=== PATIENT | female | born 1995 | race African-American/Black ===

== ENCOUNTER 2020-02-01 11:29 | Outpatient (REF) | payer OTHER, SELFPAY | END 2020-02-01 11:30 | disposition home or self-care (01) | LOC: HO.HMGCLDS 11:29 | PROVIDERS: PCP Internal Medicine; Visit Provider Internal Medicine | DX: Z01.84 Encounter for antibody response examination (principal); R76.11 Nonspecific reaction to tuberculin skin test without active tuberculosis | CPT/HCPCS: 86481 ==

== ENCOUNTER 2020-02-09 08:52 | Outpatient (REF) | payer OTHER, SELFPAY ==
[2020-02-11 18:32] LABS: TS Negative Control Passed; TS Panel A 0; TS Panel B 0; TS Positive Control Passed; TSpotTB Negative (SeeBelow)
== END 2020-02-09 08:53 | disposition home or self-care (01) ==
LOC: HO.HMGCLDS 08:52
PROVIDERS: PCP Internal Medicine; Visit Provider Internal Medicine
DX: Z01.84 Encounter for antibody response examination (principal); Z11.1 Encounter for screening for respiratory tuberculosis
CPT/HCPCS: 86481

== ENCOUNTER 2021-10-20 09:34 | Outpatient (REF) | payer OTHER, SELFPAY ==
--- NOTE | ~2021-10-20 | XR_ITS ---
EXAMINATION: XR CHEST CLINICAL INFORMATION: Chest pain, unspecified. COMPARISON: None TECHNIQUE: 2 views of the chest were obtained. FINDINGS: No significant abnormality is noted involving the heart, lungs, mediastinum, bony thorax or soft tissues. XR/XR chest 2V IMPRESSION: No acute cardiopulmonary process.
[2021-10-20 11:19] LABS: MANUAL DIFF FLAG NO
[2021-10-20 11:33] LABS: Basophils Percent Auto 0.4 % (0-2); Eosinophils Absolute Auto 0.1 X10*3/uL (0.0-0.4); Eosinophils Percent Auto 1.7 % (0-4); Hematocrit 40.1 % (37.0-47.0); Hemoglobin 13.1 g/dl (12.0-16.0); Imm Gran Abs Auto 0.01 X10*3/uL (0.00-0.03); Imm Gran Pct Auto 0.1 % (0.0-0.4); Lymphocytes Absolute Auto 2.1 X10*3/uL (1.2-4.9); Lymphocytes Percent Auto 28.2 % (20-40); Mean Corpuscular HGB Conc 32.7 g/dl (31.0-35.0); Mean Corpuscular Hemoglobin 29.6 pg (27.0-33.0); Mean Corpuscular Volume 90.7 fL (80.0-98.0); Mean Platelet Volume 10.6 fL (9.4-12.3); Monocytes Absolute Auto 0.6 X10*3/uL (0.1-1.2); Monocytes Percent Auto 8.4 % (2-11); Neutrophils Absolute Auto 4.6 x10*3/uL (2.0-8.3); Neutrophils Percent Auto 61.2 % (45-73); Platelet Count 257 X10*3/uL (160-400); Red Blood Count 4.42 X10*6/uL (4.20-5.50); Red Cell Distribution Width 12.6 % (11.0-16.0); White Blood Count 7.5 X10*3/uL (4.8-10.8)
[2021-10-20 11:36] LABS: D Dimer High Sensitivity < 150 NG/ML
== END 2021-10-20 09:35 | disposition home or self-care (01) ==
LOC: HO.HMGCX 09:34
PROVIDERS: PCP Internal Medicine; Visit Provider Nurse Practitioner Family
DX: R07.9 Chest pain, unspecified (principal); U09.9 Post COVID-19 condition, unspecified
CPT/HCPCS: 36415; 71046; 85025; 85379

== ENCOUNTER 2022-04-15 11:19 | Outpatient (REF) | payer OTHER, SELFPAY ==
[2022-04-15 14:05] LABS: MANUAL DIFF FLAG NO
[2022-04-15 14:15] LABS: Basophils Percent Auto 0.5 % (0-2); Eosinophils Absolute Auto 0.1 X10*3/uL (0.0-0.4); Eosinophils Percent Auto 1.4 % (0-4); Hematocrit 42.3 % (37.0-47.0); Hemoglobin 13.3 g/dl (12.0-16.0); Imm Gran Abs Auto 0.02 X10*3/uL (0.00-0.03); Imm Gran Pct Auto 0.3 % (0.0-0.4); Lymphocytes Absolute Auto 1.9 X10*3/uL (1.2-4.9); Lymphocytes Percent Auto 30.6 % (20-40); Mean Corpuscular HGB Conc 31.4 g/dl (31.0-35.0); Mean Corpuscular Hemoglobin 29.3 pg (27.0-33.0); Mean Corpuscular Volume 93.2 fL (80.0-98.0); Mean Platelet Volume 10.6 fL (9.4-12.3); Monocytes Absolute Auto 0.6 X10*3/uL (0.1-1.2); Neutrophils Absolute Auto 3.6 x10*3/uL (2.0-8.3); Neutrophils Percent Auto 57.2 % (45-73); Platelet Count 269 X10*3/uL (160-400); Red Blood Count 4.54 X10*6/uL (4.20-5.50); Red Cell Distribution Width 13.1 % (11.0-16.0); White Blood Count 6.3 X10*3/uL (4.8-10.8)
[2022-04-15 14:47] LABS: Alanine Aminotransferase 14 U/L (0-31); Aspartate Amino Transferase 16 U/L (5-31); Cholesterol 179 mg/dL; Glucose Fasting 62 mg/dL (60-99); HDL Cholesterol 75 mg/dL; LDL Cholesterol Calculated 93 mg/dl; Triglycerides 57 mg/dL
[2022-04-15 14:51] LABS: TSH reflex Free T4 0.91 uIU/mL (0.32-4.0); Vitamin D 25-OH Total 17.6 ng/mL (>30)
== END 2022-04-15 11:20 | disposition home or self-care (01) ==
LOC: HO.HMGCLDS 11:19
PROVIDERS: Visit Provider Internal Medicine
DX: Z00.01 Encounter for general adult medical examination with abnormal findings (principal); F98.8 Other specified behavioral and emotional disorders with onset usually occurring in childhood and adolescence; R41.840 Attention and concentration deficit; R53.83 Other fatigue
CPT/HCPCS: 36415; 80061; 82306; 82947; 84443; 84450; 84460; 85025

== ENCOUNTER 2024-06-15 14:04 | Outpatient (AMB) | payer OTHER, SELFPAY ==
[2024-06-15 14:20] VITALS: BP 114/70; PULSE 80; RESP 16; TEMP 36.6; O2SAT 98; BMI 23.0
--- NOTE | 2024-06-15 14:20 | MHC.PC.OV ---
Vital Signs 06/15/24 14:20 Height 5 ft 3 in Weight 130 lb BMI 23.0 BP 114/70 Blood Pressure Location Lt brachial Position Sitting Respiration 16 Pulse 80 Pulse Source Pulse Oximeter Temp 97.8 F Temp Source Oral Pulse Oximetry (%) 98 Oxygen Delivery Method Room Air Intake Visit Reasons: PE Intake Note: Pt is here today for her PE Is last menstrual period known: Yes Last menstrual period: 06/13/24 Allergies Seasonal Allergies Allergy (Verified 06/15/24 14:45) Sneezing Medication List - Last Reconciled 06/15/24 by Bonnie Alaniz MD ferrous sulfate, dried ER (Slow Release Iron) 160 mg PO DAILY methylphenidate HCl 10 mg PO BID propranolol 10 mg PO ONCE PRN Tobacco use date assessed: 06/15/24 Dental Screening Dental Screen Date: 06/15/24 Did you have a dental visit in the last 12 months?: No Did you have a dental problem in the last 6 months where you did not have access to dental care?: No Was dental information given to patient?: Patient has dentist HPI PE HPI Details 29-year-old lady with history of iron-deficiency anemia, vitamin-D deficiency, here today for her physical exam. She is currently taking methylphenidate, for her ADD, prescribed by Knu Castaneda. . [facility] Medical History (Updated 06/15/24 @ 14:53 by Bonnie Alaniz MD) History of blood transfusion Vitamin D deficiency Hx of iron deficiency anemia Skin lesion of back ADD (attention deficit disorder) Melanocytic nevus Traction alopecia Recurrent candidiasis of vagina Surgical History [place] teeth extracted History of tonsillectomy Family History (Updated 06/18/24 @ 15:35 by Bonnie Alaniz MD) Father Abnormal fasting glucose Maternal Grandfather Colon cancer Maternal Grandfather Colon cancer Maternal Grandmother Colon cancer Sister Breast cancer, Onset Age: 31 Mother Cancer of kidney Cervical cancer Social History Housing: Apartment Alcohol intake: current Alcohol intake frequency: a few times a month Alcohol type: beer, wine and hard liquor Patient Tobacco Use Status: Never used Tobacco e-Cigarette/Vaping Use: Never Used service: No Current occupational status: employed and student Cognitive needs: No Hearing needs: No Vision needs: No Female Reproductive History Menstrual Date of last menstrual period: 06/13/24 Questionnaire PHQ-9 Over the last 2 weeks, how often have you been bothered by any of the following problems? 1. Little interest or pleasure in doing things: not at all 2. Feeling down, depressed, or hopeless: not at all 3. Trouble falling or staying asleep, or sleeping too much: several days 4. Feeling tired or having little energy: not at all 5. Poor appetite or overeating: not at all 6. Feeling bad about yourself - or that you are a failure or have let yourself or your family down: not at all 7. Trouble concentrating on things, such as reading the newspaper or watching television: not at all 8. Moving or speaking so slowly that other people could have noticed. Or the opposite - being so fidgety or restless that you have been moving around a lot more than usual: not at all 9. Thoughts that you would be better off or of hurting yourself in some way: not at all Total score: 1 Depression Screening Interpretation: Negative Depression Screening Done: Yes 55676 - PHQ-9 Billing: Yes Source: Developed by Drs. Theo Nelson, Mihaela Victoria, Wero Bhatt and colleagues, with an educational antoni from [employer]. Thrive Questionnaire Date Thrive assessed: 06/15/24 I am a: Patient What is your living situation today?: I have a steady place to live Within the past 12 months, did the food you bought not last and you didn't have the money to get more?: Never true Within the past 12 months, did you worry whether your food would run out before you got money to buy more?: Never true Do you have trouble paying for medicines?: No Do you have trouble getting transportation to medical appointments?: No Do you have trouble paying your heating and electricity bill?: No Do you have trouble taking care of your child, family member or friend?: No Do you have trouble with day-to-day activities such as bathing, preparing meals, shopping, managing finances, etc.?: No Are you currently unemployed and looking for a job?: No Are you interested in more education?: No Please select the resources that you would like help with: None THRIVE Score: 0 AUDIT C Alcohol Use Questionnaire (AUDIT-C) 1. How often do you have a drink containing alcohol?: Monthly or less 2. How many drinks containing alcohol do you have on a typical day when you are drinking?: 1 or 2 3. How often do you have six or more drinks on one occasion?: Never Total Score: 1 CRYS-7 AMB Questionnaire CRYS-7 Date CRYS - 7 assessed: 06/15/24 Feeling nervous, anxious, or on edge: 0 = Not at all Not being able to stop or control worryin = Not at all Worrying too much about different things: 1 = Several days Trouble relaxin = Not at all Being so restless that it is hard to sit still: 0 = Not at all Becoming easily annoyed or irritable: 0 = Not at all Feeling afraid as if something awful might happen: 0 = Not at all Total CRYS-7 score (0-4 normal; 5-9 mild; 10-14 moderate; 15-21 severe): 1 Source: Developed by Drs. Theo Nelson, Mihaela Victoria, Wero Bhatt and colleagues, with an educational antoni from [employer]. CRYS-7 Assessment Billing CRYS-7 Assessment Tool: CRYS-7 Assessment 34370 Review of Systems Const Denies body aches, Denies fever(s), Denies headache(s) and Denies weakness Eyes Reports no additional complaints ENT Denies dizziness, Denies headache(s), Denies nasal congestion, Denies nasal discharge and Denies sore throat Card Denies chest pain, Denies lightheadedness and Denies dyspnea Resp Denies chest congestion, Denies cough and Denies dyspnea GI Denies abdominal pain, Denies change in bowel habits and Denies heartburn Denies urinary frequency, Denies dysuria and Denies urinary urgency Musc Reports no additional complaints Skin/Breast Denies breast pain, Denies breast mass and Denies rash Neuro Denies dizziness, Denies headache(s) and Denies weakness Psych Denies change in appetite Endo Reports no additional complaints Bhanu/Lymph Reports no additional complaints Aller/Immun Reports no additional complaints Physical exam (Primary Care) Vital Signs: Last Vital Signs Temp 97.8 F 06/15/24 14:20 Pulse 80 06/15/24 14:20 Resp 16 06/15/24 14:20 BP 114/70 06/15/24 14:20 Pulse Ox 98 06/15/24 14:20 Oxygen Delivery Method Room Air 06/15/24 14:20 BMI result Body Mass Index 23.0 Tobacco/Smoking Status: Tobacco use Status Tobacco use date assessed 06/15/24 06/15/24 14:25 Patient Tobacco Use Status Never used Tobacco 06/15/24 14:25 e-Cigarette/Vaping Use Never Used 06/15/24 14:25 Depression Screening Interpretation: Negative Thrive Assessment: Date of Thrive Assessment Date Thrive assessed 04/15/22 06/15/24 14:25 Const General: no acute distress and alert Orientation/consciousness: patient oriented x3 HENMT Head: Yes normocephalic Ears: external ears normal, TM's normal bilaterally and EAC's normal General nose exam: Normal external nose present and No nasal discharge present Face and sinus: Yes face symmetric Mouth: Normal oral and palatal mucosa present, oropharynx normal and moist mucous membranes Eyes General: appearance normal, both eyes and all related structures Eyelids: Yes eyelids normal Conjunctivae: conjunctivae normal Sclerae: sclerae normal Pupils: Equal, round and reactive pupils present EOM: EOMs intact bilaterally Neck Neck: Yes full ROM, Yes no lymphadenopathy and Yes supple Thyroid: Thyroid normal Chest Breast/axilla palpation: normal palpation of the breasts Resp Effort & Inspection: normal respiratory effort and able to speak in complete sentences Auscultation: clear to auscultation bilaterally Cardio Rate: regular rate Rhythm: regular rhythm Heart sounds: S1 normal heart sound present and S2 normal heart sound present GI Palpation (GI): Soft to palpation, nontender, no guarding and no masses Auscultation: normal bowel sounds General: Yes no CVA tenderness Back/Spine/Pelvis Back: no CVA tenderness and No back tenderness Skin Other: Hyperpigmented slightly raised lesion on lower back Neuro General: patient oriented x3, gait normal, moves all extremities, Normal light touch and pain sensation, no focal motor deficits and CN's II-XI intact bilaterally Cranial nerves: Yes Equal, round and reactive pupils present Cognition (Neuro): normal cognition Gait exam (Neuro): Normal gait present Motor exam (neuro): 5/5 motor strength present throughout Extrem General: Yes normal to inspection, Yes full ROM, Yes no joint enlargement, Yes no pedal edema and Yes normal gait Psych Appearance: grossly normal and well kempt Mental Status: mental status grossly normal Speech and movement: Normal speech and movement present Affect: normal affect Attitude: cooperative Thought process: Normal thought process present Thought content: Normal thought content present Coding Level of Care Code Est Pt Prev Care 18-39y(41662) Diagnoses Annual visit for general adult medical examination with abnormal findings Z00.01 ADD (attention deficit disorder) F98.8 Skin lesion of back L98.9 Hx of iron deficiency anemia Z86.2 Vitamin D deficiency E55.9 Additional Codes PHQ-9 - 38611 - PHQ-9 Billing: Yes ([id number]) CRYS-7 Assessment Billing - CRYS-7 Assessment Tool: CRYS-7 Assessment 54077 ([id number]) Assessment & Plan Assessment & Plan (1) Annual visit for general adult medical examination with abnormal findings: Code(s): Z00.01 - Encounter for general adult medical examination with abnormal findings Plan: Will check appropriate labs. Recommended dental visit every 6 months and regular eye exams, at least every 2 years. Take adequate calcium in diet and vitamin-D 3 at 2000 IU per cap once a day, in addition to weight-bearing exercises to help maintain good muscle tone and weight control. Instructed to do self-breast exam, and recommended to get yearly mammogram, starting at age 40. Advised to schedule an appointment with her OBGYN at [facility] for her routine Pap and pelvic exam. Reminded to get her yearly flu shots and is currently up-to-date with her other vaccines. (2) ADD (attention deficit disorder): Code(s): F98.8 - Other specified behavioral and emotional disorders with onset usually occurring in childhood and adolescence Category: Medical Plan: Followed currently by psych provider, currently on methylphenidate HCl 10 mg taken 1 tablet twice a day which has been helping (3) Skin lesion of back: Code(s): L98.9 - Disorder of the skin and subcutaneous tissue, unspecified Category: Medical Plan: Dermatology consult ordered (4) Hx of iron deficiency anemia: Code(s): Z86.2 - Personal history of diseases of the blood and blood-forming organs and certain disorders involving the immune mechanism Category: Medical Plan: Will check another CBC and iron profile, currently on ferrous sulfate supplements (5) Vitamin D deficiency: Code(s): E55.9 - Vitamin D deficiency, unspecified Category: Medical Plan: Ordered a repeat vitamin-D level Orders: Orders Complete Blood Count Auto Diff 06/15/24 E55.9 - Vitamin D deficiency, unspecified, F98.8 - Other specified behavioral and emotional disorders with onset usually occurring in childhood and adolescence, L98.9 - Disorder of the skin and subcutaneous tissue, unspecified, Z13.1 - Encounter for screening for diabetes mellitus, Z13.220 - Encounter for screening for lipoid disorders, Z86.2 - Personal history of diseases of the blood and blood-forming organs and certain disorders involving the immune mechanism, Z92.89 - Personal history of other medical treatment IRON PROFILE 06/15/24 E55.9 - Vitamin D deficiency, unspecified, F98.8 - Other specified behavioral and emotional disorders with onset usually occurring in childhood and adolescence, L98.9 - Disorder of the skin and subcutaneous tissue, unspecified, Z13.1 - Encounter for screening for diabetes mellitus, Z13.220 - Encounter for screening for lipoid disorders, Z86.2 - Personal history of diseases of the blood and blood-forming organs and certain disorders involving the immune mechanism, Z92.89 - Personal history of other medical treatment Aspartate Amino Transferase 06/15/24 E55.9 - Vitamin D deficiency, unspecified, F98.8 - Other specified behavioral and emotional disorders with onset usually occurring in childhood and adolescence, L98.9 - Disorder of the skin and subcutaneous tissue, unspecified, Z13.1 - Encounter for screening for diabetes mellitus, Z13.220 - Encounter for screening for lipoid disorders, Z86.2 - Personal history of diseases of the blood and blood-forming organs and certain disorders involving the immune mechanism, Z92.89 - Personal history of other medical treatment Basic Metabolic Panel Fasting 06/15/24 E55.9 - Vitamin D deficiency, unspecified, F98.8 - Other specified behavioral and emotional disorders with onset usually occurring in childhood and adolescence, L98.9 - Disorder of the skin and subcutaneous tissue, unspecified, Z13.1 - Encounter for screening for diabetes mellitus, Z13.220 - Encounter for screening for lipoid disorders, Z86.2 - Personal history of diseases of the blood and blood-forming organs and certain disorders involving the immune mechanism, Z92.89 - Personal history of other medical treatment Alanine Aminotransferase 06/15/24 E55.9 - Vitamin D deficiency, unspecified, F98.8 - Other specified behavioral and emotional disorders with onset usually occurring in childhood and adolescence, L98.9 - Disorder of the skin and subcutaneous tissue, unspecified, Z13.1 - Encounter for screening for diabetes mellitus, Z13.220 - Encounter for screening for lipoid disorders, Z86.2 - Personal history of diseases of the blood and blood-forming organs and certain disorders involving the immune mechanism, Z92.89 - Personal history of other medical treatment Lipid Panel 06/15/24 E55.9 - Vitamin D deficiency, unspecified, F98.8 - Other specified behavioral and emotional disorders with onset usually occurring in childhood and adolescence, L98.9 - Disorder of the skin and subcutaneous tissue, unspecified, Z13.1 - Encounter for screening for diabetes mellitus, Z13.220 - Encounter for screening for lipoid disorders, Z86.2 - Personal history of diseases of the blood and blood-forming organs and certain disorders involving the immune mechanism, Z92.89 - Personal history of other medical treatment Vitamin D 25-OH Total 06/15/24 E55.9 - Vitamin D deficiency, unspecified, F98.8 - Other specified behavioral and emotional disorders with onset usually occurring in childhood and adolescence, L98.9 - Disorder of the skin and subcutaneous tissue, unspecified, Z13.1 - Encounter for screening for diabetes mellitus, Z13.220 - Encounter for screening for lipoid disorders, Z86.2 - Personal history of diseases of the blood and blood-forming organs and certain disorders involving the immune mechanism, Z92.89 - Personal history of other medical treatment TSH reflex Free T4 06/15/24 E55.9 - Vitamin D deficiency, unspecified, F98.8 - Other specified behavioral and emotional disorders with onset usually occurring in childhood and adolescence, L98.9 - Disorder of the skin and subcutaneous tissue, unspecified, Z13.1 - Encounter for screening for diabetes mellitus, Z13.220 - Encounter for screening for lipoid disorders, Z86.2 - Personal history of diseases of the blood and blood-forming organs and certain disorders involving the immune mechanism, Z92.89 - Personal history of other medical treatment Referrals Dermatology Referral L98.9 - Disorder of the skin and subcutaneous tissue, unspecified, Z12.83 - Encounter for screening for malignant neoplasm of skin
--- OUTSIDE RECORDS SUMMARY | 2024-06-15 17:09 | XMS_ITS | Clinical Summary ---
Author Organization [facility] Address [address] [place] [address] Phone Care Team Providers Care Aviation Electronics Technician Name Role Phone Bonnie Alaniz MD Primary Care Provider Allergies No known active allergies Medications ferrous sulfate 250 mg (50 mg iron) tablet extended release Take 1 tablet by mouth 1 (one) time each day. 09/30/2023 Active cholecalciferol, vitamin D3, (VITAMIN D3 ORAL) Take 1 tablet by mouth 1 (one) time each day. Active cetirizine (ZyrTEC) 10 mg tablet Take 1 tablet (10 mg total) by mouth 1 (one) time each day. Active PNV [id number] c acid 28 mg iron- 800 mcg tablet Take 1 tablet by mouth 1 (one) time each day. 05/04/2023 Active ferrous sulfate 325 mg (65 mg elemental iron) tablet Take 1 tablet (325 mg total) by mouth 1 (one) time each day. Active Active Problems Problem Noted Date Diagnosed Date Encounter for supervision of normal first in second trimester 01/25/2024 Overview (01/25/2024): Baby boy-Yoni Hurley Trns[facility] from [facility] Blood type O positive AB screen Negative H/H34.5/ Plts 253 HepBsAg Neg HIV Neg Hep C Neg Treponema Neg Varicella Immune Rubella Imune GC/CT Neg Panorama screen AFP screen- Negative 1. [facility] site: [address] ([facility]) 2. Delivery site: [facility] 3. Mobile Mommas: 4. Dating criteria: 5. Blood type: O positive 6. Genetic screening: Date: Result: 6. GBS: Date: POSITIVE 7. FOB name: 8. Plans A. Epidural or other pain management - B. Labor support identified - C. Tdap - Date:, 09/28/2023 Flu - Date: D. Breast or Bottle feed: breast E. Baby's name - boy F. Circumcision - 9. Hospital Course: Pt is 28 yo primigravida adm on 12/26/2023 for post date IOL. She required cervical ripening and then progressed with AROM/pitocin. She had vaginal delivery of living Boy. Breast feeding improving. Overll Pp was uncomplicated, though She became syptomatic- dizzy/ light headed with prolonged standing. and cbc done showing H/H from 9.5 to 7.7 1 unit PRBC infused Family history of congenital heart defect 2023 Overview (01/25/2024): FOB's nephew with congenital heart disease GBS (group B Streptococcus c arrier), +RV culture, currently 11/25/2023 Overview (01/03/2024): No Known Allergies Rx with PCN in labor Anemia affecting in third trimester Overview (01/03/2024): Lab Results Component Value Date HGB 10.7 09/28/2023 Taking iron once daily , repeat h/h late 3rd T cardiac echogenic focus, antepartum 2023 Overview (01/03/2024): Preg @ 20w6d -patient has had a normal cell free DNA result. no further recommendations for scans are not indicated at this time Encounters Date Type Department Care Team Description 04/06/2024 2:45 PM EST Office Visit Obstetrics & Gynecology - [address] [id number] Yoana Osullivan CNM Perineal discomfort in female (Primary Dx); Perineal laceration of fourchette, sequela from Last 3 Months Immunizations Name Administration Dates Next Due Hepatitis A Adult (Havrix; V aqta) 19yo and older 10/21/2015 Influenza Quadravalent, MDCK , 0.5ml, preservative free (Flucelvax) 6mo and older 01/07/2018 Influenza Quadrivalent, 0.5m l, preservative free (Fluarix; FluLaval; Fluzone) ages 6mo and older (Afluria) 3yo and older 11/30/2022,11/26/2021,11/25/2020,2019,01/25/2017 Influenza, Unspecified 12/02/2020 Moderna SARS-CoV-2 COVID-19, mRNA, LNP-S, preservative free 11/07/2021 Pfizer (ages 12 & older) Biv alent, COVID-19 11/07/2021 Tdap Tetanus diptheria acell ular pertussis (Boostrix; Adacel) 7yo and older 09/28/2023,03/05/2017,07/12/2007 Typhoid VICPS (Typhim Vi) 2y o and older 10/21/2015 Surgical History Surgery Date Site/Laterality Comments TONSILLECTOMY PROCEDURE: HISTORICAL TONSILLECTOMY WISDOM TOOTH EXTRACTION PROCEDURE: HISTORICAL WISDOM TEETH EXTRACTION Medical History Medical History Date Comments Seasonal allergies DX:Seasonal a llergies Adhd DX:ADHD Anxiety disorder DX:Anxiety diso rder Family History Medical History Relation Name Comments Other cancer Mother cervical cancer age 59 Other: CKD Mother chronic kidney disease Breast cancer Sister Relation Name Status Comments Mother Sister Alive Social History Tobacco Use Types Packs/Day Years Used Date Smoking Tobacco: Never Smokeless Tobacco: Never Tobacco Cessation:Counseling Given: Not Answered Alcohol Use Standard Drinks/Week Comments Not Currently 0 (1 standard drink = 0.6 oz pur e alcohol) Comments No Sex and Gender Information Value Date Recorded Sex Assigned at Not on file Legal Sex Female 11:05 AM EDT Gender Identity Not on file Sexual Orientation Not on file Obstetrics History Para Term AB IAB SAB Ectopic Multiple Livin g Live Births 1 1 1 1 1 Date Outcome GA Total Labor Labor/2nd/3rd Weight Sex Type Anes PTL Ilene A1 A5 Name Clin 2023 Term 41w 2d M Vag-S pont Living Last Filed Vital Signs Vital Sign Reading Time Taken Comments Blood Pressure 106/66 04/06/2024 2:59 PM EST Pulse 85 04/06/2024 2:59 PM EST Temperature - - Respiratory Rate 16 02/22/2024 9:00 AM EST Oxygen Saturation - - Inhaled Oxygen Concentration - - Weight 60.3 kg (133 lb) 04/06/2024 2:59 PM EST Height 160 cm (5' 3 ) 04/06/2024 2:59 PM EST Body Mass Index 23.56 04/06/2024 2:59 PM EST Plan of Treatment Health Maintenance Due Date Last Done Comments Hepatitis B Vaccines (3 of 3 - 19+ 3-dose series) 12/10/2016 10/15/2016, 06/04/2016 HPV Vaccines (3 - 3-dose series) 01/07/2017 10/15/2016, 06/04/2016 Depression Screening 09/23/2023 HIV Screening 09/23/2023 Hepatitis C Screening 09/23/2023 Social Influencers of Health Screening 09/23/2023 COVID-19 Vaccine ( season) 2023 11/07/2021, 11/07/2021, 07/19/2020, Additional history exists Influenza Vaccine (Season Ended) 2024 11/30/2022, 11/26/2021, 12/02/2020, Additional history exists Cervical Cancer Screening: Pap Smear 09/15/2025 09/15/2022 DTaP,Tdap,and Td Vaccines (4 - Td or Tdap) 09/27/2033 09/28/2023, 03/05/2017, 07/12/2007 Hepatitis A Vaccines Aged Out 10/21/2015 No long er eligible based on patient's age to complete this topic MMR Vaccines Aged Out 10/15/2016, 06/04/2016 No lo nger eligible based on patient's age to complete this topic HIB Vaccines Aged Out No longer eligi ble based on patient's age to complete this topic IPV Vaccines Aged Out No longer eligi ble based on patient's age to complete this topic Meningococcal ACWY Vaccine Aged Out N o longer eligible based on patient's age to complete this topic Meningococcal B Vaccine Aged Out No l onger eligible based on patient's age to complete this topic Pneumococcal Vaccine: Pediatrics (0 to 5 Years) and At-Risk Patients (6 to 64 Years) Aged Out No longer eligible based on patient's age to complete this topic RSV Immunization Patients Under 20 months Aged Out No longer eligible based on patient's age to complete this topic Varicella Vaccines Aged Out No longer eligible based on patient's age to complete this topic Procedures Procedure Name Priority Date/Time Associated Diagnosis Comments EXTERNAL PAP SMEAR Routine 09/15/2022 12:00 AM EDT from Last 3 Months or Most Recently Relevant to Health Maintenance Results * External PAP smear (09/15/2022 12:00 AM EDT) us Historical Provider LAB CYTOLOGY ORDERABLES F inal Result [facility] [address] [place] [address] from Last 3 Months or Most Recently Relevant to Health Maintenance Insurance [facility] [employer] Care Teams Aviation Electronics Technician Relationship Specialty Start Date End Date Bonnie Alaniz MD [address] [place] [address] PCP - General 06/21/23
== END 2024-06-15 15:02 | disposition home or self-care (01) ==
LOC: HO.HMCC 14:05
PROVIDERS: PCP Internal Medicine; Visit Provider Internal Medicine
DX: Z00.01 Encounter for general adult medical examination with abnormal findings (principal); F98.8 Other specified behavioral and emotional disorders with onset usually occurring in childhood and adolescence; L98.9 Disorder of the skin and subcutaneous tissue, unspecified; Z86.2 Personal history of diseases of the blood and blood-forming organs and certain disorders involving the immune mechanism; E55.9 Vitamin D deficiency, unspecified

== ENCOUNTER → 2024-06-15 14:04 | Outpatient (BNVA) | payer OTHER, SELFPAY | PROVIDERS: PCP Internal Medicine; Visit Provider Internal Medicine | DX: Z00.01 Encounter for general adult medical examination with abnormal findings (principal); F98.8 Other specified behavioral and emotional disorders with onset usually occurring in childhood and adolescence; L98.9 Disorder of the skin and subcutaneous tissue, unspecified; E55.9 Vitamin D deficiency, unspecified; Z86.2 Personal history of diseases of the blood and blood-forming organs and certain disorders involving the immune mechanism | CPT/HCPCS: 96127; 99395 ==

== ENCOUNTER 2024-07-13 10:21 | Outpatient (REF) | payer OTHER, SELFPAY ==
--- OUTSIDE RECORDS SUMMARY | 2024-07-13 11:28 | XMS_ITS | Clinical Summary ---
Author Organization [facility] Address [address] [place] [address] Phone Care Team Providers Care Head Trimmer Name Role Phone Bonnie Alaniz MD Primary [...] 1 (one) time each day. Active PNV no.086-mbcc-jith c acid 28 mg iron- 800 mcg [...] Overview (01/25/2024): Baby [place]Yoni Hurley [facility] [facility] [place] Blood type O positive AB screen Negative H/H34.5/ Plts 253 HepBsAg Neg HIV Neg Hep C Neg Treponema Neg Varicella Immune Rubella Imune GC/CT Neg Panorama screen AFP screen- Negative 1. [facility] site: [address] ([facility]) 2. Delivery site: [facility] 3. Mobile Mommas: 4. Dating criteria: 5. [...] scans are not indicated at this time Immunizations Name Administration Dates Next Due Hepatitis [...] Provider LAB CYTOLOGY ORDERABLES F inal Result [facility] [address] [place] [address] from Last 3 Months or Most Recently Relevant to Health Maintenance Insurance [facility] [employer] Care Teams Head Trimmer Relationship Specialty Start Date End Date Bonnie Alaniz MD [address] [place] [address] PCP - General 06/21/23
[2024-07-13 13:29] LABS: MANUAL DIFF FLAG NO
[2024-07-13 13:36] LABS: Basophils Absolute Auto 0.1 X10*3/uL (0.0-0.2); Basophils Percent Auto 1.2 % (0-2); Eosinophils Absolute Auto 0.1 X10*3/uL (0.0-0.4); Eosinophils Percent Auto 1.8 % (0-4); Hematocrit 39.2 % (37.0-47.0); Hemoglobin 12.5 g/dl (12.0-16.0); Imm Gran Abs Auto 0.01 X10*3/uL (0.00-0.03); Imm Gran Pct Auto 0.2 % (0.0-0.4); Lymphocytes Percent Auto 38.2 % (20-40); Mean Corpuscular HGB Conc 31.9 g/dl (31.0-35.0); Mean Corpuscular Hemoglobin 28.9 pg (27.0-33.0); Mean Corpuscular Volume 90.7 fL (80.0-98.0); Mean Platelet Volume 10.3 fL (9.4-12.3); Monocytes Absolute Auto 0.4 X10*3/uL (0.1-1.2); Monocytes Percent Auto 7.8 % (2-11); Neutrophils Absolute Auto 2.6 x10*3/uL (2.0-8.3); Neutrophils Percent Auto 50.8 % (45-73); Platelet Count 270 X10*3/uL (160-400); Red Blood Count 4.32 X10*6/uL (4.20-5.50); Red Cell Distribution Width 13.1 % (11.0-16.0); White Blood Count 5.1 X10*3/uL (4.8-10.8)
[2024-07-13 14:03] LABS: Alanine Aminotransferase 12 U/L (0-31); Anion Gap 12 (12-20); Aspartate Amino Transferase 20 U/L (5-31); Blood Urea Nitrogen 11 mg/dL (9-16); Calcium 9.3 mg/dL (8.4-10.2); Carbon Dioxide 25 mmol/L (22-29); Chloride 107 mmol/L (96-108); Cholesterol 187 mg/dL (<200); Estimated Glomerular Filt Rate > 60; Glucose Fasting 83 mg/dL (60-99); HDL Cholesterol 67 mg/dL (>40); Iron 107 mcg/dL (30-160); LDL Cholesterol Calculated 111 mg/dL (<100); Percent Iron Saturation 33 % (15-50); Potassium 4.1 mmol/L (3.3-5.1); Sodium 140 mmol/L (135-145); Total Iron Binding Capacity 323 mcg/dL (228-428); Triglycerides 47 mg/dL (<150); Unsaturated Iron Binding 216 ug/dL
[2024-07-13 14:18] LABS: TSH reflex Free T4 2.03 uIU/mL (0.32-4.0); Vitamin D 25-OH Total 26.4 ng/mL (>30)
== END 2024-07-13 10:22 | disposition home or self-care (01) ==
LOC: HO.HMGCLDS 10:21
PROVIDERS: PCP Internal Medicine; Visit Provider Internal Medicine
DX: L98.8 Other specified disorders of the skin and subcutaneous tissue (principal)
CPT/HCPCS: 36415; 80048; 80061; 82306; 83540; 84443; 84450; 84460; 85025